=== PATIENT | male | born 1940 | race Caucasian/White ===

== ENCOUNTER 2022-11-14 14:12 | Emergency (ER) | payer MEDICARE, OTHER ==
[2022-11-14 15:09] LABS: ANION GAP 11.1 meq/L (7-15); CHLORIDE,CL 102 mmol/L (98-107); SODIUM,NA 138 mmol/L (136-145)
[2022-11-14 15:14] LABS: ESTIMATED GFR 51 mL/min (>=60)
[2022-11-14 15:18] LABS: RESPIRATORY SYNCYTIAL VIR NAA NEGATIVE (NEGATIVE)
[2022-11-14 15:19] LABS: CORONAVIRUS COVID-19 NAA POSITIVE (NEGATIVE)
== END 2022-11-14 16:00 | disposition home or self-care (01) ==
LOC: LL.ED 14:12
DX: U07.1 COVID-19 (principal); Z79.82 Long term (current) use of aspirin; Z86.73 Personal history of transient ischemic attack (TIA), and cerebral infarction without residual deficits
CPT/HCPCS: 0241U; 36415; 71046; 80053; 83605; 85025; 99283

== ENCOUNTER 2024-05-06 10:34 | Day surgery (SDC) | payer MEDICARE, OTHER ==
[~2024-05-06 10:34] MED LIST: Midazolam 1 MG/ML 2 ML SDV ONE; Propofol 200 MG/20 ML SDV ONE
[2024-05-06] MEDS ORDERED: Sodium Chloride 0.9% 10 ML Syringe FLUSH PRN (11:00)
[2024-05-06] MEDS: Lactated Ringers 1,000 ML IV SCH (11:30)
== END 2024-05-06 13:57 | disposition home or self-care (01) ==
LOC: LL.SDS 10:34
PROVIDERS: ATTEND Surgery
DX: K62.1 Rectal polyp (principal); K57.31 Diverticulosis of large intestine without perforation or abscess with bleeding; K64.8 Other hemorrhoids; Z80.0 Family history of malignant neoplasm of digestive organs
CPT/HCPCS: 00811; 99100; J2250; J2704; J7120